=== PATIENT | male | born 1950 ===

== ENCOUNTER 2018-07-17 10:49 | Inpatient (IN) ==
[2018-07-17] MEDS ORDERED: GLUCAGON 1 MG VIAL IM PRN (14:12)
[2018-07-17] MEDS ORDERED: DEXTROSE 50% 25 GM/50 ML VIAL IV PRN (14:12)
[2018-07-17] MEDS ORDERED: MORPHINE 4 MG/1 ML VIAL IV PRN (14:12)
[2018-07-17] MEDS ORDERED: ONDANSETRON 4 MG/2 ML VIAL IV PRN (14:12)
[2018-07-17] MEDS: SODIUM CHLORIDE 0.9% 1,000 ML IV SCH ×2 (15:15→23:28)
[2018-07-17] MEDS: PIPERACILLIN/TAZOBACTAM 3,375 MG in SODIUM CHLORIDE 0.9% 100 ML IV SCH ×2 (15:15→23:30)
[2018-07-17] MEDS: INSULIN LISPRO 100 UNIT/ML SUBCUT SCH ×2 (17:17→20:37)
[2018-07-17] MEDS: VANCOMYCIN INJ 1,250 MG in SODIUM CHLORIDE 0.9% 250 ML IV SCH (20:30)
[2018-07-17] MEDS: ENOXAPARIN 40 MG/0.4 ML SYRINGE SUBCUT SCH (20:31)
[2018-07-17] MEDS: THIAMINE 100 MG TABLET PO SCH (20:37)
[2018-07-18 02:20] LABS: Apearance,Urine CLEAR (Clear); Bilirubin,Urine Negative (Negative); Blood, Urine Small mg/dL (Negative); Glucose,Urine (UA) Negative (Negative); Ketones,Urine Negative (Negative); Mucus,Urine Occasional /LPF (Occasional); Nitrite,Urine Negative (Negative); Protein,Urine Negative; RBC,Urine <1 /HPF (0-4); Urine Color Yellow (Yellow); WBC,Urine <1 /HPF (0-6)
[2018-07-18 04:21] LABS: Basophils # 0.1 10*3/uL (0.0-0.2); Basophils % 0.6 % (0.0-0.8); Eosinophils # 0.2 10*3/uL (0.0-0.87); Eosinophils % 2.3 % (0.00-10.9); Hematocrit 36.5 VOL% (42.0-52.0); Hemoglobin 12.5 GM/DL (14.0-18.0); Immature Granulocytes % 0.6 %; Immature Granulocytes Absolute 0.05 #; Lymphocytes # 1.4 10*3/uL (1.4-4.0); Lymphocytes % 15.9 % (21.2-54.2); Mean Corpuscular HGB Conc 34.2 GM/DL (32-36); Mean Corpuscular Hemoglobin 31 PG (27-34); Mean Corpuscular Volume 89.9 FL (87-102); Mean Platelet Volume 8.9 FL (9.6-12.0); Monocytes # 0.8 10*3/uL (0.11-0.8); Monocytes % 9.3 % (1.7-12.7); Neutrophils # 6.4 10*3/uL (1.4-7.4); Neutrophils % 71.3 % (38.7-73.9); Platelet Count 248 T/CUMM (130-400); Red Blood Count 4.06 MC/CUMM (3.8-5.5); Red Cell Distribution Width 12.8 % (9.3-17.3)
[2018-07-18 04:47] LABS: Albumin 2.6 G/DL (3.4-5.0); Bilirubin,Total 0.8 MG/DL (0.2-1.0); Calcium 8.3 MG/DL (8.5-10.1); Osmolality,Calculated 277.5 MOS/KG (273-304); Potassium 3.8 MMOL/L (3.5-5.1); Total Protein 6.4 G/DL (6.4-8.3)
[2018-07-18] MEDS: INSULIN LISPRO 100 UNIT/ML SUBCUT SCH ×4 (07:46→20:31)
[2018-07-18] MEDS: PIPERACILLIN/TAZOBACTAM 3,375 MG in SODIUM CHLORIDE 0.9% 100 ML IV SCH ×3 (07:52→22:52)
[2018-07-18] MEDS: PANTOPRAZOLE 40 MG TABLET PO SCH (08:26)
[2018-07-18] MEDS: MULTIVITAMIN (BEROCCA) TABLET PO SCH (08:26)
[2018-07-18] MEDS: THIAMINE 100 MG TABLET PO SCH ×2 (08:26→20:30)
[2018-07-18] MEDS: VANCOMYCIN INJ 1,250 MG in SODIUM CHLORIDE 0.9% 250 ML IV SCH ×2 (09:29→20:34)
[2018-07-18] MEDS ORDERED: POLYVINYL ALCOHOL 1.4% OPH SOLN 15 ML BOTTLE BOTH EYES PRN (11:57)
[2018-07-18] MEDS ORDERED: LIDOCAINE 1% 20 ML VIAL ONE (12:02)
[2018-07-18] MEDS ORDERED: DEXTROSE 50% 25 GM/50 ML VIAL IV PRN (12:03)
[2018-07-18] MEDS ORDERED: GLUCAGON 1 MG VIAL IM PRN (12:03)
[2018-07-18] MEDS ORDERED: fentaNYL 100 MCG/2 ML VIAL ONE (13:23)
[2018-07-18] MEDS ORDERED: PROPOFOL 200 MG/20 ML VIAL IV ONE (13:27)
[2018-07-18] MEDS ORDERED: MIDAZOLAM 2 MG/2 ML VIAL ONE (13:28)
[2018-07-18] MEDS ORDERED: SODIUM CHLORIDE 0.9% 250 ML IV ONE (13:28)
[2018-07-18] MEDS: SODIUM CHLORIDE 0.9% 1,000 ML IV SCH (15:21)
[2018-07-18] MEDS: ACETAMINOPHEN 325 MG TABLET PO PRN ×2 (16:30→21:25)
[2018-07-18] MEDS ORDERED: INSULIN LISPRO 100 UNIT/ML SUBCUT SCH (16:30)
[2018-07-18] MEDS: ENOXAPARIN 40 MG/0.4 ML SYRINGE SUBCUT SCH (20:30)
[2018-07-18] MEDS: SIMVASTATIN 40 MG TABLET PO SCH (20:30)
[2018-07-18] MEDS: DOCUSATE SODIUM 100 MG CAPSULE PO SCH (20:30)
[2018-07-18] MEDS: diphenhydrAMINE CAP 25 MG CAPSULE PO PRN (21:26)
[2018-07-19] MEDS: ACETAMINOPHEN 325 MG TABLET PO PRN ×4 (03:01→21:04)
[2018-07-19] MEDS: SODIUM CHLORIDE 0.9% 1,000 ML IV SCH ×2 (03:10→21:12)
[2018-07-19 06:01] LABS: Basophils % 0.3 % (0.0-0.8); Eosinophils # 0.2 10*3/uL (0.0-0.87); Eosinophils % 2.2 % (0.00-10.9); Hematocrit 34.7 VOL% (42.0-52.0); Hemoglobin 12.2 GM/DL (14.0-18.0); Immature Granulocytes % 0.4 %; Immature Granulocytes Absolute 0.03 #; Lymphocytes % 14.1 % (21.2-54.2); Mean Corpuscular HGB Conc 35.2 GM/DL (32-36); Mean Corpuscular Hemoglobin 31 PG (27-34); Mean Platelet Volume 8.9 FL (9.6-12.0); Monocytes # 0.7 10*3/uL (0.11-0.8); Monocytes % 8.8 % (1.7-12.7); Neutrophils # 5.5 10*3/uL (1.4-7.4); Neutrophils % 74.2 % (38.7-73.9); Platelet Count 252 T/CUMM (130-400); Red Blood Count 3.99 MC/CUMM (3.8-5.5); Red Cell Distribution Width 12.7 % (9.3-17.3); White Blood Count 7.4 T/CUMM (4-12)
[2018-07-19 06:30] LABS: Osmolality,Calculated 279.4 MOS/KG (273-304); Potassium 3.5 MMOL/L (3.5-5.1)
[2018-07-19] MEDS: PIPERACILLIN/TAZOBACTAM 3,375 MG in SODIUM CHLORIDE 0.9% 100 ML IV SCH ×3 (06:38→23:20)
[2018-07-19] MEDS: THIAMINE 100 MG TABLET PO SCH ×2 (08:40→21:04)
[2018-07-19] MEDS: METOPROLOL SUCCINATE XL 25 MG TABLET PO SCH (08:42)
[2018-07-19] MEDS: ASPIRIN EC 325 MG TABLET PO SCH (08:43)
[2018-07-19] MEDS: INSULIN LISPRO 100 UNIT/ML SUBCUT SCH ×4 (08:43→21:06)
[2018-07-19] MEDS: MULTIVITAMIN (BEROCCA) TABLET PO SCH (08:43)
[2018-07-19] MEDS: PANTOPRAZOLE 40 MG TABLET PO SCH (08:43)
[2018-07-19] MEDS: VANCOMYCIN INJ 1,250 MG in SODIUM CHLORIDE 0.9% 250 ML IV SCH (10:03)
[2018-07-19] MEDS ORDERED: VANCOMYCIN INJ 1,250 MG in SODIUM CHLORIDE 0.9% 250 ML IV SCH (18:00)
[2018-07-19] MEDS: SIMVASTATIN 40 MG TABLET PO SCH (21:04)
[2018-07-19] MEDS: diphenhydrAMINE CAP 25 MG CAPSULE PO PRN (21:04)
[2018-07-19] MEDS: DOCUSATE SODIUM 100 MG CAPSULE PO SCH (21:04)
[2018-07-19] MEDS: ENOXAPARIN 40 MG/0.4 ML SYRINGE SUBCUT SCH (21:05)
[2018-07-20] MEDS: SODIUM CHLORIDE 0.9% 1,000 ML IV SCH ×3 (05:16→23:43)
[2018-07-20] MEDS: PIPERACILLIN/TAZOBACTAM 3,375 MG in SODIUM CHLORIDE 0.9% 100 ML IV SCH ×3 (06:13→22:53)
[2018-07-20] MEDS: THIAMINE 100 MG TABLET PO SCH ×2 (08:24→20:45)
[2018-07-20] MEDS: PANTOPRAZOLE 40 MG TABLET PO SCH (08:24)
[2018-07-20] MEDS: METOPROLOL SUCCINATE XL 25 MG TABLET PO SCH (08:24)
[2018-07-20] MEDS: MULTIVITAMIN (BEROCCA) TABLET PO SCH (08:24)
[2018-07-20] MEDS: ASPIRIN EC 325 MG TABLET PO SCH (08:24)
[2018-07-20] MEDS: INSULIN LISPRO 100 UNIT/ML SUBCUT SCH ×4 (08:25→20:45)
[2018-07-20] MEDS: ACETAMINOPHEN 325 MG TABLET PO PRN ×2 (08:30→18:30)
[2018-07-20] MEDS: DOCUSATE SODIUM 100 MG CAPSULE PO SCH (20:45)
[2018-07-20] MEDS: SIMVASTATIN 40 MG TABLET PO SCH (20:45)
[2018-07-20] MEDS: ENOXAPARIN 40 MG/0.4 ML SYRINGE SUBCUT SCH (20:46)
[2018-07-21] MEDS: SODIUM CHLORIDE 0.9% 1,000 ML IV SCH ×3 (05:13→15:13)
[2018-07-21] MEDS: ACETAMINOPHEN 325 MG TABLET PO PRN ×2 (06:06→11:58)
[2018-07-21] MEDS: PIPERACILLIN/TAZOBACTAM 3,375 MG in SODIUM CHLORIDE 0.9% 100 ML IV SCH (06:06)
[2018-07-21] MEDS: INSULIN LISPRO 100 UNIT/ML SUBCUT SCH ×2 (07:38→11:50)
[2018-07-21] MEDS: THIAMINE 100 MG TABLET PO SCH (08:12)
[2018-07-21] MEDS: ASPIRIN EC 325 MG TABLET PO SCH (08:12)
[2018-07-21] MEDS: MULTIVITAMIN (BEROCCA) TABLET PO SCH (08:12)
[2018-07-21] MEDS: METOPROLOL SUCCINATE XL 25 MG TABLET PO SCH (08:12)
[2018-07-21] MEDS: PANTOPRAZOLE 40 MG TABLET PO SCH (08:12)
[2018-07-21 11:59] VITALS: BP 132/72
== END 2018-07-21 16:20 | disposition home or self-care (01) | DRG 305 ==
LOC: SUATTDRO 12:39 → N.3E 12:39
PROVIDERS: ADMIT Internal Medicine; ATTEND Internal Medicine

== ENCOUNTER 2019-03-12 18:42 | Inpatient (IN) ==
[2019-03-12] MEDS ORDERED: PIPERACILLIN/TAZOBACTAM 3,375 MG in SODIUM CHLORIDE 0.9% 100 ML IV STA (19:08)
[2019-03-12 19:45] LABS: Basophils # 0.1 10*3/uL (0.0-0.2); Basophils % 0.3 % (0.0-0.8); Eosinophils # 0.1 10*3/uL (0.0-0.87); Eosinophils % 0.4 % (0.00-10.9); Hematocrit 32.8 VOL% (42.0-52.0); Hemoglobin 10.7 GM/DL (14.0-18.0); Immature Granulocytes % 0.5 %; Immature Granulocytes Absolute 0.07 #; Lymphocytes # 1.2 10*3/uL (1.4-4.0); Mean Corpuscular HGB Conc 32.6 GM/DL (32-36); Mean Corpuscular Hemoglobin 29 PG (27-34); Mean Corpuscular Volume 88.2 FL (87-102); Mean Platelet Volume 8.6 FL (9.6-12.0); Monocytes % 6.9 % (1.7-12.7); Neutrophils # 12.2 10*3/uL (1.4-7.4); Neutrophils % 83.9 % (38.7-73.9); Platelet Count 407 T/CUMM (130-400); Red Blood Count 3.72 MC/CUMM (3.8-5.5); Red Cell Distribution Width 12.1 % (9.3-17.3); White Blood Count 14.6 T/CUMM (4-12)
[2019-03-12 20:07] LABS: Albumin 2.6 G/DL (3.4-5.0); Bilirubin,Total 0.6 MG/DL (0.2-1.0); Calcium 7.5 MG/DL (8.5-10.1); Osmolality,Calculated 277.1 MOS/KG (273-304); Potassium 5.1 MMOL/L (3.5-5.1); Total Protein 6.6 G/DL (6.4-8.3)
[2019-03-12] MEDS: LACTATED RINGERS 1,000 ML IV SCH (20:43)
[2019-03-12] MEDS ORDERED: MORPHINE 4 MG/1 ML VIAL IV PRN (21:25)
[2019-03-12] MEDS ORDERED: traZODone 50 MG TABLET PO PRN (21:25)
[2019-03-12] MEDS ORDERED: DOCUSATE SODIUM 100 MG CAPSULE PO PRN (21:25)
[2019-03-12] MEDS ORDERED: ACETAMINOPHEN 325 MG TABLET PO PRN (21:25)
[2019-03-12] MEDS ORDERED: ONDANSETRON 4 MG/2 ML VIAL IV PRN (21:25)
[2019-03-12] MEDS ORDERED: DEXTROSE 50% 25 GM/50 ML SYRINGE IV PRN (21:30)
[2019-03-12] MEDS ORDERED: GLUCAGON 1 MG VIAL IM PRN (21:30)
[2019-03-12] MEDS ORDERED: VANCOMYCIN INJ 1,000 MG in SODIUM CHLORIDE 0.9% 250 ML IV SCH (23:30)
[2019-03-13] MEDS: SODIUM CHLORIDE 0.9% 1,000 ML IV SCH (00:34)
[2019-03-13] MEDS: VANCOMYCIN INJ 1,000 MG in SODIUM CHLORIDE 0.9% 250 ML IV SCH ×3 (00:35→23:12)
[2019-03-13] MEDS: LACTATED RINGERS 1,000 ML IV SCH ×3 (01:54→20:30)
[2019-03-13] MEDS: PIPERACILLIN/TAZOBACTAM 3,375 MG in SODIUM CHLORIDE 0.9% 100 ML IV SCH ×3 (03:05→18:55)
[2019-03-13 04:24] LABS: Basophils % 0.2 % (0.0-0.8); Eosinophils # 0.1 10*3/uL (0.0-0.87); Eosinophils % 0.5 % (0.00-10.9); Hematocrit 31.4 VOL% (42.0-52.0); Hemoglobin 10.1 GM/DL (14.0-18.0); Immature Granulocytes % 0.5 %; Immature Granulocytes Absolute 0.06 #; Lymphocytes # 1.2 10*3/uL (1.4-4.0); Lymphocytes % 11.1 % (21.2-54.2); Mean Corpuscular HGB Conc 32.2 GM/DL (32-36); Mean Corpuscular Hemoglobin 29 PG (27-34); Mean Corpuscular Volume 88.5 FL (87-102); Mean Platelet Volume 8.7 FL (9.6-12.0); Monocytes % 8.8 % (1.7-12.7); Neutrophils # 8.6 10*3/uL (1.4-7.4); Neutrophils % 78.9 % (38.7-73.9); Platelet Count 355 T/CUMM (130-400); Red Blood Count 3.55 MC/CUMM (3.8-5.5); White Blood Count 10.9 T/CUMM (4-12)
[2019-03-13 04:43] LABS: Calcium 7.7 MG/DL (8.5-10.1); Osmolality,Calculated 275.1 MOS/KG (273-304)
[2019-03-13] MEDS ORDERED: CLINDAMYCIN INJ 900 MG in PREMIX 1 EACH IV ONE (08:17)
[2019-03-13] MEDS: INSULIN LISPRO 100 UNIT/ML SUBCUT SCH ×4 (08:36→20:31)
[2019-03-13] MEDS ORDERED: LIDOCAINE 1% 20 ML VIAL ONE (11:42)
[2019-03-13] MEDS ORDERED: PROPOFOL 200 MG/20 ML VIAL IV ONE (13:09)
[2019-03-13] MEDS ORDERED: MIDAZOLAM 2 MG/2 ML VIAL ONE (13:09)
[2019-03-13] MEDS ORDERED: fentaNYL 100 MCG/2 ML VIAL ONE (13:09)
[2019-03-13] MEDS ORDERED: PHENYLEPHRINE 1 MG/10 ML SYRINGE IV ONE (13:10)
[2019-03-14] MEDS: LACTATED RINGERS 1,000 ML IV SCH ×2 (02:41→06:54)
[2019-03-14] MEDS: PIPERACILLIN/TAZOBACTAM 3,375 MG in SODIUM CHLORIDE 0.9% 100 ML IV SCH ×2 (02:42→11:14)
[2019-03-14 04:21] LABS: Basophils % 0.4 % (0.0-0.8); Eosinophils # 0.2 10*3/uL (0.0-0.87); Eosinophils % 1.7 % (0.00-10.9); Hematocrit 31.8 VOL% (42.0-52.0); Hemoglobin 10.3 GM/DL (14.0-18.0); Immature Granulocytes % 0.5 %; Immature Granulocytes Absolute 0.05 #; Lymphocytes # 1.1 10*3/uL (1.4-4.0); Lymphocytes % 11.3 % (21.2-54.2); Mean Corpuscular HGB Conc 32.4 GM/DL (32-36); Mean Corpuscular Hemoglobin 29 PG (27-34); Mean Corpuscular Volume 89.1 FL (87-102); Mean Platelet Volume 8.6 FL (9.6-12.0); Monocytes # 0.9 10*3/uL (0.11-0.8); Monocytes % 8.6 % (1.7-12.7); Neutrophils # 7.7 10*3/uL (1.4-7.4); Neutrophils % 77.5 % (38.7-73.9); Platelet Count 332 T/CUMM (130-400); Red Blood Count 3.57 MC/CUMM (3.8-5.5); White Blood Count 9.9 T/CUMM (4-12)
[2019-03-14 04:51] LABS: Calcium 7.7 MG/DL (8.5-10.1); Osmolality,Calculated 275.8 MOS/KG (273-304); Potassium 3.8 MMOL/L (3.5-5.1)
[2019-03-14] MEDS: INSULIN LISPRO 100 UNIT/ML SUBCUT SCH ×2 (07:02→11:14)
[2019-03-14] MEDS ORDERED: CHLORHEXIDINE 4% SOLN 118 ML BOTTLE TOP SCH (09:00)
[2019-03-14] MEDS ORDERED: SODIUM HYPOCHLORITE 0.25% IRRIG 473 ML BOTTLE TOP SCH (09:00)
[2019-03-14] MEDS: SODIUM CHLORIDE 0.9% 1,000 ML IV SCH ×2 (09:23→09:24)
[2019-03-14] MEDS: VANCOMYCIN INJ 1,000 MG in SODIUM CHLORIDE 0.9% 250 ML IV SCH (11:15)
[2019-03-14 11:26] VITALS: BP 133/84
== END 2019-03-14 11:15 | disposition home or self-care (01) | DRG 314 ==
LOC: EDUNIT# → EDBD → N.ED 18:42 → SUATTDRO 20:51 → N.EDINP 20:51 → N.3E 22:30
PROVIDERS: ADMIT Internal Medicine Infectious Disease; ATTEND Internal Medicine

== ENCOUNTER 2019-09-21 13:25 | Inpatient (IN) ==
[2019-09-21] MEDS ORDERED: SODIUM CHLORIDE 0.9% 1,000 ML IV STA (13:57)
[2019-09-21] MEDS ORDERED: MEROPENEM 1,000 MG in SODIUM CHLORIDE 0.9% 100 ML IV STA (13:57)
[2019-09-21] MEDS ORDERED: MEROPENEM 500 MG VIAL ONE (14:12)
[2019-09-21 14:21] LABS: Basophils % 0.1 % (0.0-0.8); Hematocrit 37.6 VOL% (42.0-52.0); Hemoglobin 12.8 GM/DL (14.0-18.0); Immature Granulocytes % 0.9 %; Lymphocytes # 0.7 10*3/uL (1.4-4.0); Lymphocytes % 3.1 % (21.2-54.2); Mean Corpuscular Volume 89.3 FL (87-102); Mean Platelet Volume 9.3 FL (9.6-12.0); Monocytes % 4.4 % (1.7-12.7); Neutrophils % 91.5 % (38.7-73.9); Platelet Count 254 T/CUMM (130-400); Red Blood Count 4.21 MC/CUMM (3.8-5.5); Red Cell Distribution Width 12.7 % (9.3-17.3); White Blood Count 21.1 T/CUMM (4-12)
[2019-09-21 14:26] LABS: Apearance,Urine CLEAR (Clear); Bilirubin,Urine Negative (Negative); Blood, Urine Moderate mg/dL (Negative); Glucose,Urine (UA) >=500 mg/dL (Negative); Hyaline Casts,Urine 3 /LPF (0-3); Ketones,Urine 20 mg/dL (Negative); Nitrite,Urine Negative (Negative); Protein,Urine 100 MG/DL; RBC,Urine 9 /HPF (0-4); Urine Color Yellow (Yellow); Urine Specific Gravity 1.026 (1.001-1.035); WBC,Urine 1 /HPF (0-6)
[2019-09-21] MEDS ORDERED: BUPIVACAINE 0.25% /EPI 10 ML VIAL ONE (14:33)
[2019-09-21] MEDS ORDERED: LIDOCAINE 1%/EPI INJ 20 ML VIAL ONE (14:33)
[2019-09-21 14:41] LABS: Blood Urea Nitrogen 32 MG/DL (7-18); Calcium 8.4 MG/DL (8.5-10.1); Estimated Glom Filtration Rate 62 ML/MIN; Glucose 382 MG/DL (74-106); Osmolality,Calculated 295.8 MOS/KG (273-304)
[2019-09-21 15:30] LABS: Band Neutrophils 2 % (0-10); Lymphocytes 3 % (20-55); Platelet Estimate Normal; Segmented Neutrophils 93 % (50-85); Total Cells Counted 100
[2019-09-21] MEDS ORDERED: PROPOFOL 200 MG/20 ML VIAL IV ONE (16:11)
[2019-09-21] MEDS ORDERED: fentaNYL 100 MCG/2 ML VIAL ONE (16:12)
[2019-09-21] MEDS ORDERED: DESFLURANE 1 UNIT/15 MINUTE INH ONE (16:12)
[2019-09-21] MEDS ORDERED: SUCCINYLCHOLINE 200 MG/10 ML VIAL ONE (16:12)
[2019-09-21] MEDS ORDERED: ETOMIDATE 40 MG/20 ML VIAL IV ONE (16:12)
[2019-09-21] MEDS ORDERED: SODIUM CHLORIDE 0.9% 1,000 ML IV ONE (16:12)
[2019-09-21] MEDS ORDERED: LIDOCAINE 2% 5 ML VIAL ONE (16:12)
[2019-09-21] MEDS ORDERED: ONDANSETRON 4 MG/2 ML VIAL ONE (16:15)
[2019-09-21] MEDS ORDERED: HYDROmorphone 2 MG/1 ML VIAL ONE (16:15)
[2019-09-21] MEDS ORDERED: HYDROmorphone 2 MG/1 ML VIAL IV PRN (16:16)
[2019-09-21] MEDS ORDERED: ONDANSETRON 4 MG/2 ML VIAL IV PRN ×2 (16:16→17:15)
[2019-09-21 16:22] LABS: Apearance,Urine CLEAR (Clear); Bilirubin,Urine Negative (Negative); Blood, Urine Moderate mg/dL (Negative); Glucose,Urine (UA) >=500 mg/dL (Negative); Hyaline Casts,Urine 5 /LPF (0-3); Ketones,Urine 5 mg/dL (Negative); Mucus,Urine Occasional /LPF (Occasional); Nitrite,Urine Negative (Negative); Protein,Urine 100 MG/DL; RBC,Urine 4 /HPF (0-4); Urine Color Yellow (Yellow); Urine Specific Gravity 1.026 (1.001-1.035); WBC,Urine 1 /HPF (0-6)
[2019-09-21] MEDS ORDERED: INFLUENZA VIRUS VACCINE 0.5 ML SYRINGE IM ONE (17:09)
[2019-09-21] MEDS ORDERED: PNEUMOCOCCAL VACCINE (13 VALENT) 0.5 ML SYRINGE IM ONE (17:09)
[2019-09-21] MEDS ORDERED: ACETAMINOPHEN 325 MG TABLET PO PRN (17:15)
[2019-09-21] MEDS ORDERED: DEXTROSE 50% 25 GM/50 ML VIAL IV PRN ×2 (17:15→17:27)
[2019-09-21] MEDS ORDERED: GLUCAGON 1 MG VIAL IM PRN (17:27)
[2019-09-21] MEDS ORDERED: INSULIN REGULAR 100 UNIT/ML ONE (17:41)
[2019-09-21] MEDS: SODIUM CHLORIDE 0.9% 1,000 ML IV SCH (17:45)
[2019-09-21] MEDS: INSULIN REGULAR 100 UNIT/ML SUBCUT SCH ×2 (18:10→20:19)
[2019-09-21] MEDS: VANCOMYCIN INJ 1,250 MG in SODIUM CHLORIDE 0.9% 250 ML IV SCH (19:01)
[2019-09-21] MEDS: MEROPENEM 500 MG in SODIUM CHLORIDE 0.9% 100 ML IV SCH (20:19)
[2019-09-21] MEDS: traZODone 50 MG TABLET PO PRN (20:20)
[2019-09-22] MEDS: MEROPENEM 500 MG in SODIUM CHLORIDE 0.9% 100 ML IV SCH ×4 (02:54→21:58)
[2019-09-22] MEDS: SODIUM CHLORIDE 0.9% 1,000 ML IV SCH (02:54)
[2019-09-22] MEDS ORDERED: SODIUM CHLORIDE 0.9% 500 ML IV ONE (03:01)
[2019-09-22 04:36] LABS: Basophils % 0.2 % (0.0-0.8); Eosinophils % 0.2 % (0.00-10.9); Hematocrit 29.2 VOL% (42.0-52.0); Immature Granulocytes % 0.8 %; Lymphocytes # 0.9 10*3/uL (1.4-4.0); Lymphocytes % 7.2 % (21.2-54.2); Mean Corpuscular HGB Conc 33.9 GM/DL (32-36); Mean Platelet Volume 9.3 FL (9.6-12.0); Monocytes % 4.8 % (1.7-12.7); Neutrophils % 86.8 % (38.7-73.9); Red Blood Count 3.21 MC/CUMM (3.8-5.5); Red Cell Distribution Width 12.7 % (9.3-17.3); White Blood Count 12.8 T/CUMM (4-12)
[2019-09-22 04:38] LABS: Hemoglobin 9.9 GM/DL (14.0-18.0); Platelet Count 196 T/CUMM (130-400)
[2019-09-22 04:50] LABS: Calcium 7.4 MG/DL (8.5-10.1); Osmolality,Calculated 286.3 MOS/KG (273-304)
[2019-09-22] MEDS: VANCOMYCIN INJ 1,250 MG in SODIUM CHLORIDE 0.9% 250 ML IV SCH ×2 (05:59→18:43)
[2019-09-22] MEDS ORDERED: MAGNESIUM SULF RIDER 2 GM in PREMIX 1 EACH IV ONE (07:27)
[2019-09-22] MEDS: POTASSIUM CHLORIDE INJ 20 MEQ in LACTATED RINGERS 1,000 ML IV SCH ×2 (09:04→17:34)
[2019-09-22] MEDS: INSULIN REGULAR 100 UNIT/ML SUBCUT SCH ×4 (09:05→21:58)
[2019-09-22] MEDS: SODIUM HYPOCHLORITE 0.25% IRRIG 473 ML BOTTLE TOP SCH ×2 (11:05→22:00)
[2019-09-22] MEDS ORDERED: POLYVINYL ALCOHOL 1.4% OPH SOLN 15 ML BOTTLE BOTH EYES PRN (11:07)
[2019-09-22] MEDS ORDERED: diphenhydrAMINE CAP 25 MG CAPSULE PO PRN (11:07)
[2019-09-22] MEDS: MORPHINE 4 MG/1 ML VIAL IV PRN (12:00)
[2019-09-23] MEDS: MEROPENEM 500 MG in SODIUM CHLORIDE 0.9% 100 ML IV SCH ×4 (04:25→21:46)
[2019-09-23] MEDS: POTASSIUM CHLORIDE INJ 20 MEQ in LACTATED RINGERS 1,000 ML IV SCH ×4 (04:33→19:46)
[2019-09-23 05:51] LABS: Basophils % 0.1 % (0.0-0.8); Eosinophils # 0.1 10*3/uL (0.0-0.87); Eosinophils % 0.9 % (0.00-10.9); Hematocrit 29.4 VOL% (42.0-52.0); Hemoglobin 9.9 GM/DL (14.0-18.0); Immature Granulocytes % 0.5 %; Immature Granulocytes Absolute 0.05 #; Lymphocytes % 10.7 % (21.2-54.2); Mean Corpuscular HGB Conc 33.7 GM/DL (32-36); Mean Corpuscular Volume 89.4 FL (87-102); Mean Platelet Volume 9.8 FL (9.6-12.0); Neutrophils % 81.8 % (38.7-73.9); Platelet Count 216 T/CUMM (130-400); Red Blood Count 3.29 MC/CUMM (3.8-5.5); Red Cell Distribution Width 12.9 % (9.3-17.3); White Blood Count 9.3 T/CUMM (4-12)
[2019-09-23 06:20] LABS: Albumin 1.9 G/DL (3.4-5.0); Bilirubin,Total 0.9 MG/DL (0.2-1.0); Calcium 7.7 MG/DL (8.5-10.1); Osmolality,Calculated 282.5 MOS/KG (273-304); Total Protein 5.4 G/DL (6.4-8.3)
[2019-09-23] MEDS: VANCOMYCIN INJ 1,250 MG in SODIUM CHLORIDE 0.9% 250 ML IV SCH ×2 (07:22→22:18)
[2019-09-23] MEDS: ENOXAPARIN 40 MG/0.4 ML SYRINGE SUBCUT SCH (08:18)
[2019-09-23] MEDS: ASPIRIN EC 81 MG TABLET PO SCH (08:18)
[2019-09-23] MEDS: INSULIN REGULAR 100 UNIT/ML SUBCUT SCH ×4 (08:18→21:47)
[2019-09-23] MEDS: SODIUM HYPOCHLORITE 0.25% IRRIG 473 ML BOTTLE TOP SCH ×2 (10:25→21:56)
[2019-09-23] MEDS: MORPHINE 4 MG/1 ML VIAL IV PRN (22:28)
[2019-09-24] MEDS: MEROPENEM 500 MG in SODIUM CHLORIDE 0.9% 100 ML IV SCH ×4 (02:21→20:47)
[2019-09-24] MEDS: POTASSIUM CHLORIDE INJ 20 MEQ in LACTATED RINGERS 1,000 ML IV SCH ×3 (02:22→14:29)
[2019-09-24] MEDS: VANCOMYCIN INJ 1,250 MG in SODIUM CHLORIDE 0.9% 250 ML IV SCH ×3 (05:34→22:21)
[2019-09-24] MEDS: INSULIN REGULAR 100 UNIT/ML SUBCUT SCH ×4 (08:37→20:47)
[2019-09-24] MEDS: ASPIRIN EC 81 MG TABLET PO SCH (08:37)
[2019-09-24] MEDS: ENOXAPARIN 40 MG/0.4 ML SYRINGE SUBCUT SCH (08:38)
[2019-09-24] MEDS: SODIUM HYPOCHLORITE 0.25% IRRIG 473 ML BOTTLE TOP SCH ×2 (10:11→20:50)
[2019-09-24] MEDS: traZODone 50 MG TABLET PO PRN (20:53)
[2019-09-25] MEDS: MEROPENEM 500 MG in SODIUM CHLORIDE 0.9% 100 ML IV SCH ×3 (01:41→13:30)
[2019-09-25] MEDS: POTASSIUM CHLORIDE INJ 20 MEQ in LACTATED RINGERS 1,000 ML IV SCH ×3 (01:41→10:22)
[2019-09-25 05:15] LABS: Calcium 8.5 MG/DL (8.5-10.1); Osmolality,Calculated 284.5 MOS/KG (273-304)
[2019-09-25] MEDS: VANCOMYCIN INJ 1,250 MG in SODIUM CHLORIDE 0.9% 250 ML IV SCH ×2 (05:31→15:02)
[2019-09-25] MEDS: INSULIN REGULAR 100 UNIT/ML SUBCUT SCH ×4 (08:40→21:04)
[2019-09-25] MEDS: ASPIRIN EC 81 MG TABLET PO SCH (08:44)
[2019-09-25] MEDS: ENOXAPARIN 40 MG/0.4 ML SYRINGE SUBCUT SCH (08:45)
[2019-09-25] MEDS: SODIUM HYPOCHLORITE 0.25% IRRIG 473 ML BOTTLE TOP SCH ×2 (10:22→21:05)
[2019-09-25] MEDS ORDERED: INSULIN GLARGINE 100 UNIT/ML SUBCUT SCH (21:00)
[2019-09-26 06:18] LABS: Basophils % 0.4 % (0.0-0.8); Eosinophils % 3.4 % (0.00-10.9); Hematocrit 30.8 VOL% (42.0-52.0); Hemoglobin 10.1 GM/DL (14.0-18.0); Immature Granulocytes % 2.7 %; Lymphocytes # 1.3 10*3/uL (1.4-4.0); Lymphocytes % 18.2 % (21.2-54.2); Mean Corpuscular HGB Conc 32.8 GM/DL (32-36); Mean Corpuscular Volume 90.1 FL (87-102); Mean Platelet Volume 9.7 FL (9.6-12.0); Neutrophils % 62.3 % (38.7-73.9); Platelet Count 287 T/CUMM (130-400); Red Blood Count 3.42 MC/CUMM (3.8-5.5); Red Cell Distribution Width 12.7 % (9.3-17.3); White Blood Count 7.3 T/CUMM (4-12)
[2019-09-26 06:19] LABS: Eosinophils # 0.3 10*3/uL (0.0-0.87)
[2019-09-26] MEDS ORDERED: METOPROLOL SUCCINATE XL 25 MG TABLET PO SCH (09:00)
[2019-09-26] MEDS ORDERED: SULFAMETHOX/TRIMETHOPRIM 800-160 MG TABLET PO SCH (09:00)
[2019-09-26] MEDS: INSULIN REGULAR 100 UNIT/ML SUBCUT SCH ×2 (09:42→12:16)
[2019-09-26] MEDS: ASPIRIN EC 81 MG TABLET PO SCH (09:43)
[2019-09-26] MEDS: ENOXAPARIN 40 MG/0.4 ML SYRINGE SUBCUT SCH (09:43)
[2019-09-26] MEDS: SODIUM HYPOCHLORITE 0.25% IRRIG 473 ML BOTTLE TOP SCH (09:44)
[2019-09-26 14:42] VITALS: BP 108/60
== END 2019-09-26 16:10 | disposition home or self-care (01) | DRG 501 ==
LOC: EDBD → EDUNIT# → N.ED 13:25 → N.ICU 14:23 → SUATTDRO 16:09 → N.EDINP 16:09 → N.ICU 16:29 → N.5E 09-22 16:41
PROVIDERS: ADMIT Anesthesiology; ATTEND Family Medicine

== ENCOUNTER 2019-09-30 12:07 | Inpatient (IN) ==
[2019-09-30] MEDS ORDERED: MEROPENEM 1,000 MG in SODIUM CHLORIDE 0.9% 100 ML IV STA (12:54)
[2019-09-30] MEDS ORDERED: MEROPENEM 500 MG VIAL ONE (13:21)
[2019-09-30 13:29] LABS: Basophils % 0.4 % (0.0-0.8); Eosinophils # 0.2 10*3/uL (0.0-0.87); Eosinophils % 1.9 % (0.00-10.9); Hematocrit 35.8 VOL% (42.0-52.0); Hemoglobin 11.8 GM/DL (14.0-18.0); Immature Granulocytes % 0.6 %; Immature Granulocytes Absolute 0.06 #; Lymphocytes # 1.5 10*3/uL (1.4-4.0); Lymphocytes % 15.8 % (21.2-54.2); Mean Corpuscular Volume 90.6 FL (87-102); Mean Platelet Volume 8.5 FL (9.6-12.0); Monocytes % 3.8 % (1.7-12.7); Neutrophils % 77.5 % (38.7-73.9); Platelet Count 477 T/CUMM (130-400); Red Blood Count 3.95 MC/CUMM (3.8-5.5); Red Cell Distribution Width 12.7 % (9.3-17.3); White Blood Count 9.4 T/CUMM (4-12)
[2019-09-30 13:37] LABS: Apearance,Urine CLEAR (Clear); Bilirubin,Urine Negative (Negative); Blood, Urine Negative (Negative); Glucose,Urine (UA) Negative (Negative); Hyaline Casts,Urine 21 /LPF (0-3); Ketones,Urine 5 mg/dL (Negative); Mucus,Urine Occasional /LPF (Occasional); Nitrite,Urine Negative (Negative); Protein,Urine 100 MG/DL; RBC,Urine 10 /HPF (0-4); Squamous Epithelial Cell,Urine Occasional /HPF (0-10); Urine Color Yellow (Yellow); Urine Specific Gravity 1.028 (1.001-1.035); WBC,Urine 1 /HPF (0-6)
[2019-09-30 13:37] LABS: PT Patient Result 10.8 SECS (9.6-12.2)
[2019-09-30 13:50] LABS: Alanine Aminotransferase 25 U/L (16-61); Albumin 2.8 G/DL (3.4-5.0); Alkaline Phosphatase 174 U/L (45-117); Aspartate Amino Transferase 12 U/L (0-37); Blood Urea Nitrogen 16 MG/DL (7-18); Calcium 8.5 MG/DL (8.5-10.1); Estimated Glom Filtration Rate 103 ML/MIN; Glucose 127 MG/DL (74-106); Osmolality,Calculated 279.5 MOS/KG (273-304); Total Protein 7.6 G/DL (6.4-8.3); Troponin I < 0.015 NG/ML (0.00-0.045)
[2019-09-30] MEDS ORDERED: ACETAMINOPHEN 325 MG TABLET PO PRN (14:19)
[2019-09-30] MEDS ORDERED: GLUCAGON 1 MG VIAL IM PRN (14:19)
[2019-09-30] MEDS ORDERED: DEXTROSE 10% 250 ML BAG IV PRN (14:19)
[2019-09-30] MEDS ORDERED: ONDANSETRON 4 MG/2 ML VIAL IV PRN (14:19)
[2019-09-30] MEDS ORDERED: BISACODYL 5 MG TABLET PO PRN (14:19)
[2019-09-30] MEDS ORDERED: DEXTRAN HYPROMELLOSE BOTH EYES PRN (15:59)
[2019-09-30] MEDS: INSULIN LISPRO 100 UNIT/ML SUBCUT SCH ×2 (19:03→22:38)
[2019-09-30] MEDS: MEROPENEM 500 MG in SODIUM CHLORIDE 0.9% 100 ML IV SCH (20:51)
[2019-09-30] MEDS ORDERED: SULFAMETHOX/TRIMETHOPRIM 800-160 MG TABLET PO SCH (21:00)
[2019-09-30] MEDS: INSULIN GLARGINE 100 UNIT/ML SUBCUT SCH (22:00)
[2019-09-30] MEDS: diphenhydrAMINE CAP 25 MG CAPSULE PO PRN (22:02)
[2019-10-01] MEDS: MEROPENEM 500 MG in SODIUM CHLORIDE 0.9% 100 ML IV SCH ×4 (01:56→21:20)
[2019-10-01] MEDS: INSULIN LISPRO 100 UNIT/ML SUBCUT SCH ×4 (08:30→21:22)
[2019-10-01] MEDS: METOPROLOL SUCCINATE XL 25 MG TABLET PO SCH (09:07)
[2019-10-01] MEDS: ASPIRIN EC 81 MG TABLET PO SCH (09:07)
[2019-10-01] MEDS: SODIUM HYPOCHLORITE 0.25% IRRIG 473 ML BOTTLE TOP SCH ×2 (09:07→09:12)
[2019-10-01] MEDS: PANTOPRAZOLE 40 MG TABLET PO SCH (09:07)
[2019-10-01] MEDS: diphenhydrAMINE CAP 25 MG CAPSULE PO PRN (21:20)
[2019-10-01] MEDS: INSULIN GLARGINE 100 UNIT/ML SUBCUT SCH (21:27)
[2019-10-02] MEDS: MEROPENEM 500 MG in SODIUM CHLORIDE 0.9% 100 ML IV SCH ×4 (01:50→21:00)
[2019-10-02] MEDS: INSULIN LISPRO 100 UNIT/ML SUBCUT SCH ×4 (08:10→21:02)
[2019-10-02] MEDS: ASPIRIN EC 81 MG TABLET PO SCH (08:11)
[2019-10-02] MEDS: METOPROLOL SUCCINATE XL 25 MG TABLET PO SCH (08:11)
[2019-10-02] MEDS: PANTOPRAZOLE 40 MG TABLET PO SCH (08:11)
[2019-10-02] MEDS: diphenhydrAMINE CAP 25 MG CAPSULE PO PRN (21:00)
[2019-10-02] MEDS: INSULIN GLARGINE 100 UNIT/ML SUBCUT SCH (21:00)
[2019-10-03] MEDS: MEROPENEM 500 MG in SODIUM CHLORIDE 0.9% 100 ML IV SCH ×2 (02:05→09:53)
[2019-10-03] MEDS: ASPIRIN EC 81 MG TABLET PO SCH (09:52)
[2019-10-03] MEDS: PANTOPRAZOLE 40 MG TABLET PO SCH (09:53)
[2019-10-03] MEDS: METOPROLOL SUCCINATE XL 25 MG TABLET PO SCH (09:53)
[2019-10-03] MEDS: INSULIN LISPRO 100 UNIT/ML SUBCUT SCH ×2 (09:53→12:38)
[2019-10-03 12:27] VITALS: BP 117/66
== END 2019-10-03 13:17 | disposition hospice, home (50) | DRG 501 ==
LOC: EDUNIT# → EDBD → N.ED 12:07 → N.EDINP 14:19 → N.5E 15:13
PROVIDERS: ADMIT Internal Medicine; ATTEND Internal Medicine

== ENCOUNTER 2019-12-12 15:18 | Inpatient (IN) ==
[2019-12-12 16:40] LABS: Basophils # 0.1 10*3/uL (0.0-0.2); Basophils % 0.6 % (0.0-0.8); Eosinophils # 0.2 10*3/uL (0.0-0.87); Eosinophils % 1.4 % (0.00-10.9); Hematocrit 27.7 VOL% (42.0-52.0); Hemoglobin 9.1 GM/DL (14.0-18.0); Immature Granulocytes % 0.5 %; Immature Granulocytes Absolute 0.06 #; Lymphocytes # 1.6 10*3/uL (1.4-4.0); Lymphocytes % 12.9 % (21.2-54.2); Mean Corpuscular HGB Conc 32.9 GM/DL (32-36); Mean Corpuscular Volume 90.2 FL (87-102); Mean Platelet Volume 8.7 FL (9.6-12.0); Monocytes % 5.6 % (1.7-12.7); Platelet Count 315 T/CUMM (130-400); Red Blood Count 3.07 MC/CUMM (3.8-5.5); White Blood Count 12.4 T/CUMM (4-12)
[2019-12-12 16:58] LABS: Alanine Aminotransferase < 9 U/L (16-61); Albumin 2.8 G/DL (3.4-5.0); Alkaline Phosphatase 92 U/L (45-117); Aspartate Amino Transferase 6 U/L (0-37); Blood Urea Nitrogen 23 MG/DL (7-18); Calcium 8.2 MG/DL (8.5-10.1); Estimated Glom Filtration Rate 85 ML/MIN; Glucose 150 MG/DL (74-106); Osmolality,Calculated 281.7 MOS/KG (273-304); Total Protein 7.4 G/DL (6.4-8.3)
[2019-12-12] MEDS ORDERED: ONDANSETRON 4 MG/2 ML VIAL IV PRN (20:16)
[2019-12-12] MEDS ORDERED: ACETAMINOPHEN 325 MG TABLET PO PRN (20:16)
[2019-12-12] MEDS ORDERED: GLUCAGON 1 MG VIAL IM PRN (20:16)
[2019-12-12] MEDS ORDERED: DEXTROSE 10% 250 ML BAG IV PRN (20:16)
[2019-12-12] MEDS: PIPERACILLIN/TAZOBACTAM 3,375 MG in SODIUM CHLORIDE 0.9% 100 ML IV SCH (21:27)
[2019-12-12] MEDS: LACTATED RINGERS 1,000 ML IV SCH (21:27)
[2019-12-12] MEDS: INSULIN REGULAR 100 UNIT/ML SUBCUT SCH (21:28)
[2019-12-13] MEDS: LACTATED RINGERS 1,000 ML IV SCH ×3 (04:20→21:02)
[2019-12-13] MEDS: PIPERACILLIN/TAZOBACTAM 3,375 MG in SODIUM CHLORIDE 0.9% 100 ML IV SCH ×3 (04:20→21:00)
[2019-12-13] MEDS: INSULIN REGULAR 100 UNIT/ML SUBCUT SCH ×4 (07:38→21:01)
[2019-12-13] MEDS ORDERED: LIDOCAINE 1% 20 ML VIAL ONE (08:31)
[2019-12-13] MEDS ORDERED: propofoL 200 MG/20 ML VIAL IV ONE (09:29)
[2019-12-13] MEDS ORDERED: LIDOCAINE 2% 5 ML VIAL ONE (09:29)
[2019-12-13] MEDS ORDERED: MIDAZOLAM 2 MG/2 ML VIAL ONE (09:30)
[2019-12-13] MEDS ORDERED: fentaNYL 100 MCG/2 ML VIAL ONE (09:30)
[2019-12-13] MEDS ORDERED: SODIUM CHLORIDE 0.9% 100 ML IV ONE (09:30)
[2019-12-13] MEDS: PANTOPRAZOLE 40 MG TABLET PO SCH (10:15)
[2019-12-13] MEDS ORDERED: DEXTRAN HYPROMELLOSE BOTH EYES PRN (11:38)
[2019-12-13] MEDS: GABAPENTIN 100 MG CAPSULE PO SCH (12:02)
[2019-12-13] MEDS: ENOXAPARIN 40 MG/0.4 ML SYRINGE SUBCUT SCH (12:02)
[2019-12-13] MEDS: INSULIN LISPRO 100 UNIT/ML SUBCUT SCH ×2 (16:16→21:01)
[2019-12-13] MEDS: SIMVASTATIN 10 MG TABLET PO SCH (21:00)
[2019-12-13] MEDS: GLIMEPIRIDE 4 MG TABLET PO SCH (21:00)
[2019-12-13] MEDS: INSULIN GLARGINE 100 UNIT/ML SUBCUT SCH (21:01)
[2019-12-13] MEDS: diphenhydrAMINE CAP 25 MG CAPSULE PO PRN (22:40)
[2019-12-14] MEDS: GABAPENTIN 100 MG CAPSULE PO SCH ×3 (00:52→23:26)
[2019-12-14] MEDS: PIPERACILLIN/TAZOBACTAM 3,375 MG in SODIUM CHLORIDE 0.9% 100 ML IV SCH ×3 (03:40→21:36)
[2019-12-14] MEDS: LACTATED RINGERS 1,000 ML IV SCH ×3 (07:45→21:36)
[2019-12-14] MEDS: INSULIN REGULAR 100 UNIT/ML SUBCUT SCH ×4 (07:52→21:35)
[2019-12-14] MEDS: LINEZOLID INJ 600 MG in PREMIX 1 EACH IV SCH ×2 (08:38→19:43)
[2019-12-14] MEDS: PANTOPRAZOLE 40 MG TABLET PO SCH (08:40)
[2019-12-14] MEDS: GLIMEPIRIDE 4 MG TABLET PO SCH ×2 (08:41→21:34)
[2019-12-14] MEDS: METOPROLOL SUCCINATE XL 25 MG TABLET PO SCH (08:41)
[2019-12-14] MEDS: INSULIN LISPRO 100 UNIT/ML SUBCUT SCH ×3 (08:41→21:35)
[2019-12-14] MEDS: ASPIRIN EC 81 MG TABLET PO SCH (08:41)
[2019-12-14] MEDS: INSULIN GLARGINE 100 UNIT/ML SUBCUT SCH ×2 (08:41→21:35)
[2019-12-14] MEDS: lisinopriL 5 MG TABLET PO SCH (08:41)
[2019-12-14] MEDS: ENOXAPARIN 40 MG/0.4 ML SYRINGE SUBCUT SCH (12:02)
[2019-12-14] MEDS: SIMVASTATIN 10 MG TABLET PO SCH (21:34)
[2019-12-14] MEDS: diphenhydrAMINE CAP 25 MG CAPSULE PO PRN (21:34)
[2019-12-15] MEDS: PIPERACILLIN/TAZOBACTAM 3,375 MG in SODIUM CHLORIDE 0.9% 100 ML IV SCH ×3 (04:52→21:12)
[2019-12-15] MEDS: LACTATED RINGERS 1,000 ML IV SCH (04:52)
[2019-12-15] MEDS: INSULIN REGULAR 100 UNIT/ML SUBCUT SCH ×4 (08:08→21:13)
[2019-12-15] MEDS: INSULIN LISPRO 100 UNIT/ML SUBCUT SCH ×3 (08:23→21:13)
[2019-12-15] MEDS: INSULIN GLARGINE 100 UNIT/ML SUBCUT SCH ×2 (08:23→21:14)
[2019-12-15] MEDS: lisinopriL 5 MG TABLET PO SCH (09:59)
[2019-12-15] MEDS: ASPIRIN EC 81 MG TABLET PO SCH (09:59)
[2019-12-15] MEDS: METOPROLOL SUCCINATE XL 25 MG TABLET PO SCH (09:59)
[2019-12-15] MEDS: LINEZOLID INJ 600 MG in PREMIX 1 EACH IV SCH ×2 (10:00→21:11)
[2019-12-15] MEDS: GLIMEPIRIDE 4 MG TABLET PO SCH ×2 (10:00→21:13)
[2019-12-15] MEDS: PANTOPRAZOLE 40 MG TABLET PO SCH (10:00)
[2019-12-15] MEDS: ENOXAPARIN 40 MG/0.4 ML SYRINGE SUBCUT SCH (11:33)
[2019-12-15] MEDS: GABAPENTIN 100 MG CAPSULE PO SCH (11:33)
[2019-12-15] MEDS: SIMVASTATIN 10 MG TABLET PO SCH (21:14)
[2019-12-16] MEDS: GABAPENTIN 100 MG CAPSULE PO SCH ×3 (01:52→23:50)
[2019-12-16] MEDS: PIPERACILLIN/TAZOBACTAM 3,375 MG in SODIUM CHLORIDE 0.9% 100 ML IV SCH ×3 (03:40→20:50)
[2019-12-16] MEDS: LACTATED RINGERS 1,000 ML IV SCH ×6 (06:10→21:46)
[2019-12-16] MEDS: LINEZOLID INJ 600 MG in PREMIX 1 EACH IV SCH ×2 (08:39→20:50)
[2019-12-16] MEDS: METOPROLOL SUCCINATE XL 25 MG TABLET PO SCH (08:47)
[2019-12-16] MEDS: PANTOPRAZOLE 40 MG TABLET PO SCH (08:47)
[2019-12-16] MEDS: ASPIRIN EC 81 MG TABLET PO SCH (08:47)
[2019-12-16] MEDS: lisinopriL 5 MG TABLET PO SCH (08:47)
[2019-12-16] MEDS: INSULIN LISPRO 100 UNIT/ML SUBCUT SCH ×3 (08:55→20:55)
[2019-12-16] MEDS: INSULIN REGULAR 100 UNIT/ML SUBCUT SCH ×4 (08:55→20:55)
[2019-12-16] MEDS: GLIMEPIRIDE 4 MG TABLET PO SCH ×2 (08:59→20:51)
[2019-12-16] MEDS: ENOXAPARIN 40 MG/0.4 ML SYRINGE SUBCUT SCH (12:18)
[2019-12-16] MEDS: INSULIN GLARGINE 100 UNIT/ML SUBCUT SCH ×2 (13:24→20:57)
[2019-12-16] MEDS: diphenhydrAMINE CAP 25 MG CAPSULE PO PRN (20:49)
[2019-12-16] MEDS: SIMVASTATIN 10 MG TABLET PO SCH (20:51)
[2019-12-17] MEDS: PIPERACILLIN/TAZOBACTAM 3,375 MG in SODIUM CHLORIDE 0.9% 100 ML IV SCH ×3 (04:46→21:30)
[2019-12-17] MEDS: INSULIN REGULAR 100 UNIT/ML SUBCUT SCH ×4 (06:57→21:34)
[2019-12-17] MEDS: LACTATED RINGERS 1,000 ML IV SCH ×3 (07:05→21:33)
[2019-12-17] MEDS: LINEZOLID INJ 600 MG in PREMIX 1 EACH IV SCH ×3 (08:25→21:28)
[2019-12-17] MEDS: METOPROLOL SUCCINATE XL 25 MG TABLET PO SCH (08:34)
[2019-12-17] MEDS: PANTOPRAZOLE 40 MG TABLET PO SCH (08:34)
[2019-12-17] MEDS: lisinopriL 5 MG TABLET PO SCH (08:34)
[2019-12-17] MEDS: ASPIRIN EC 81 MG TABLET PO SCH (08:34)
[2019-12-17] MEDS: INSULIN LISPRO 100 UNIT/ML SUBCUT SCH ×3 (08:35→21:33)
[2019-12-17] MEDS: INSULIN GLARGINE 100 UNIT/ML SUBCUT SCH ×2 (08:35→21:34)
[2019-12-17] MEDS: GLIMEPIRIDE 4 MG TABLET PO SCH ×2 (08:36→21:30)
[2019-12-17] MEDS: GABAPENTIN 100 MG CAPSULE PO SCH (12:23)
[2019-12-17] MEDS: ENOXAPARIN 40 MG/0.4 ML SYRINGE SUBCUT SCH (12:24)
[2019-12-17] MEDS: SIMVASTATIN 10 MG TABLET PO SCH (21:30)
[2019-12-17] MEDS: diphenhydrAMINE CAP 25 MG CAPSULE PO PRN (21:30)
[2019-12-18] MEDS: GABAPENTIN 100 MG CAPSULE PO SCH (00:46)
[2019-12-18] MEDS: PIPERACILLIN/TAZOBACTAM 3,375 MG in SODIUM CHLORIDE 0.9% 100 ML IV SCH (05:17)
[2019-12-18 08:15] VITALS: BP 109/73
[2019-12-18] MEDS: INSULIN REGULAR 100 UNIT/ML SUBCUT SCH (10:05)
[2019-12-18] MEDS: INSULIN LISPRO 100 UNIT/ML SUBCUT SCH (10:06)
[2019-12-18] MEDS: LINEZOLID INJ 600 MG in PREMIX 1 EACH IV SCH (10:06)
[2019-12-18] MEDS: lisinopriL 5 MG TABLET PO SCH (10:35)
[2019-12-18] MEDS: INSULIN GLARGINE 100 UNIT/ML SUBCUT SCH (10:35)
[2019-12-18] MEDS: GLIMEPIRIDE 4 MG TABLET PO SCH (10:35)
[2019-12-18] MEDS: ASPIRIN EC 81 MG TABLET PO SCH (10:35)
[2019-12-18] MEDS: METOPROLOL SUCCINATE XL 25 MG TABLET PO SCH (10:36)
[2019-12-18] MEDS: PANTOPRAZOLE 40 MG TABLET PO SCH (11:06)
== END 2019-12-18 10:56 | disposition home or self-care (01) | DRG 305 ==
LOC: EDBD → EDUNIT# → N.EDINP 15:18 → N.ED 15:18 → N.3E 19:29
PROVIDERS: ADMIT Surgery; ATTEND Surgery

== ENCOUNTER 2020-10-31 12:40 | Inpatient (IN) ==
[2020-10-31] MEDS ORDERED: MEROPENEM 1,000 MG in SODIUM CHLORIDE 0.9% 100 ML IV STA (13:15)
[2020-10-31 14:37] LABS: Basophils # 0.1 10*3/uL (0.0-0.2); Basophils % 0.7 % (0.0-0.8); Eosinophils # 0.2 10*3/uL (0.0-0.87); Eosinophils % 2.2 % (0.00-10.9); Hematocrit 31.1 VOL% (42.0-52.0); Hemoglobin 10.4 GM/DL (14.0-18.0); Immature Granulocytes % 0.3 %; Immature Granulocytes Absolute 0.03 #; Lymphocytes # 1.1 10*3/uL (1.4-4.0); Lymphocytes % 12.9 % (21.2-54.2); Mean Corpuscular HGB Conc 33.4 GM/DL (32-36); Mean Corpuscular Volume 85.2 FL (87-102); Mean Platelet Volume 8.6 FL (9.6-12.0); Monocytes % 4.4 % (1.7-12.7); Neutrophils % 79.5 % (38.7-73.9); Platelet Count 356 T/CUMM (130-400); Red Blood Count 3.65 MC/CUMM (3.8-5.5); Red Cell Distribution Width 12.1 % (9.3-17.3); White Blood Count 8.7 T/CUMM (4-12)
[2020-10-31 15:10] LABS: Alanine Aminotransferase 13 U/L (16-61); Albumin 2.6 G/DL (3.4-5.0); Alkaline Phosphatase 123 U/L (45-117); Aspartate Amino Transferase 8 U/L (0-37); Bilirubin,Total < 0.39 MG/DL (0.2-1.0); Blood Urea Nitrogen 19 MG/DL (7-18); Calcium 8.8 MG/DL (8.5-10.1); Estimated Glom Filtration Rate 67 ML/MIN; Glucose 230 MG/DL (74-106); Osmolality,Calculated 281.8 MOS/KG (273-304); Total Protein 7.6 G/DL (6.4-8.3)
[2020-10-31] MEDS ORDERED: PROMETHAZINE 25 MG TABLET PO PRN (15:19)
[2020-10-31] MEDS ORDERED: hydrALAZINE 20 MG/1 ML VIAL IV PRN (15:19)
[2020-10-31] MEDS ORDERED: diphenhydrAMINE CAP 25 MG CAPSULE PO PRN ×2 (15:19→15:28)
[2020-10-31] MEDS ORDERED: BISACODYL 5 MG TABLET PO PRN (15:19)
[2020-10-31] MEDS ORDERED: NICOTINE 21 MG/24 HR PATCH TRANSDERM PRN (15:19)
[2020-10-31] MEDS ORDERED: guaiFENesin/DM ER 600-30 MG TABLET PO PRN (15:19)
[2020-10-31] MEDS ORDERED: DEXTROSE 50% 25 GM/50 ML VIAL IV PRN ×2 (15:19)
[2020-10-31] MEDS ORDERED: MAGNESIUM SULF RIDER 2 GM in PREMIX 1 EACH IV PRN (15:19)
[2020-10-31] MEDS ORDERED: MORPHINE 4 MG/1 ML VIAL IV PRN (15:19)
[2020-10-31] MEDS ORDERED: ONDANSETRON 4 MG/2 ML VIAL IV PRN (15:19)
[2020-10-31] MEDS ORDERED: MAGNESIUM SULF RIDER 4 GM in PREMIX 1 EACH IV PRN (15:19)
[2020-10-31] MEDS ORDERED: GLUCAGON 1 MG VIAL IM PRN ×2 (15:19)
[2020-10-31] MEDS ORDERED: SIMETHICONE CHEW 125 MG TABLET PO PRN (15:19)
[2020-10-31] MEDS ORDERED: LACTULOSE 20 GM/30 ML UDCUP PO PRN (15:19)
[2020-10-31] MEDS ORDERED: POTASSIUM CHLORIDE RIDER 10 MEQ in PREMIX 1 EACH IV PRN (15:19)
[2020-10-31] MEDS ORDERED: traZODone 50 MG TABLET PO PRN (15:19)
[2020-10-31] MEDS ORDERED: ACETAMINOPHEN 325 MG TABLET PO PRN (15:19)
[2020-10-31] MEDS ORDERED: ZALEPLON 5 MG CAPSULE PO PRN (15:19)
[2020-10-31] MEDS ORDERED: DOCUSATE SODIUM 100 MG CAPSULE PO PRN (15:19)
[2020-10-31] MEDS: INSULIN REGULAR 100 UNIT/ML SUBCUT SCH ×2 (17:57→21:35)
[2020-10-31] MEDS ORDERED: VANCOMYCIN INJ 1,750 MG in SODIUM CHLORIDE 0.9% 500 ML IV ONE (18:00)
[2020-10-31] MEDS ORDERED: metFORMIN 500 MG TABLET PO SCH (21:00)
[2020-10-31] MEDS: ENOXAPARIN 40 MG/0.4 ML SYRINGE SUBCUT SCH (21:35)
[2020-10-31] MEDS: SODIUM CHLORIDE 0.9% 1,000 ML IV SCH (21:37)
[2020-11-01] MEDS: VANCOMYCIN INJ 1,250 MG in SODIUM CHLORIDE 0.9% 250 ML IV SCH ×2 (05:15→21:30)
[2020-11-01 05:51] LABS: Basophils # 0.1 10*3/uL (0.0-0.2); Basophils % 0.8 % (0.0-0.8); Eosinophils # 0.3 10*3/uL (0.0-0.87); Eosinophils % 3.5 % (0.00-10.9); Hematocrit 31.8 VOL% (42.0-52.0); Hemoglobin 10.4 GM/DL (14.0-18.0); Immature Granulocytes % 0.5 %; Immature Granulocytes Absolute 0.04 #; Lymphocytes # 1.5 10*3/uL (1.4-4.0); Lymphocytes % 19.9 % (21.2-54.2); Mean Corpuscular HGB Conc 32.7 GM/DL (32-36); Mean Corpuscular Volume 86.9 FL (87-102); Mean Platelet Volume 8.6 FL (9.6-12.0); Monocytes % 5.4 % (1.7-12.7); Neutrophils % 69.9 % (38.7-73.9); Platelet Count 364 T/CUMM (130-400); Red Blood Count 3.66 MC/CUMM (3.8-5.5); Red Cell Distribution Width 12.2 % (9.3-17.3); White Blood Count 7.6 T/CUMM (4-12)
[2020-11-01 06:26] LABS: Albumin 2.3 G/DL (3.4-5.0); Bilirubin,Total 0.5 MG/DL (0.2-1.0); Calcium 8.5 MG/DL (8.5-10.1); Osmolality,Calculated 280.5 MOS/KG (273-304); Risk Ratio 5.96; Thyroid Stimulating Hormone 0.248 uIU/ml (0.358-3.74); Total Protein 6.8 G/DL (6.4-8.3); VLDL CHOLESTEROL 30.4 MG/DL
[2020-11-01 07:11] LABS: Bacteria,Urine Occasional /HPF (Few); Bilirubin,Urine Negative (Negative); Blood, Urine Small mg/dL (Negative); Glucose,Urine (UA) 150 mg/dL (Negative); Ketones,Urine Negative (Negative); Mucus,Urine Occasional /LPF (Occasional); Nitrite,Urine Negative (Negative); Protein,Urine 30 MG/DL; RBC,Urine 6 /HPF (0-4); Squamous Epithelial Cell,Urine Occasional /HPF (0-10); Urine Appearance CLEAR (Clear); Urine Color Yellow (Yellow); Urine Specific Gravity 1.012 (1.001-1.035); Urine Urobilinogen < 2.0 EU/DL (0.2-1.0); WBC,Urine <1 /HPF (0-6)
[2020-11-01] MEDS ORDERED: PANTOPRAZOLE 40 MG TABLET PO SCH (09:00)
[2020-11-01 09:19] LABS: Free T4 (Free Thyroxine) 1.08 NG/DL (0.76-1.46)
[2020-11-01] MEDS: PIPERACILLIN/TAZOBACTAM 3,375 MG in SODIUM CHLORIDE 0.9% 100 ML IV SCH ×2 (09:53→16:38)
[2020-11-01] MEDS: METOPROLOL SUCCINATE XL 25 MG TABLET PO SCH (09:53)
[2020-11-01] MEDS: INSULIN REGULAR 100 UNIT/ML SUBCUT SCH ×4 (09:53→21:35)
[2020-11-01] MEDS ORDERED: LIDOCAINE 1% 20 ML VIAL ONE (12:24)
[2020-11-01] MEDS ORDERED: BUPIVACAINE MPF 0.25% 30 ML VIAL ONE (12:24)
[2020-11-01] MEDS ORDERED: MIDAZOLAM 2 MG/2 ML VIAL ONE (12:44)
[2020-11-01] MEDS ORDERED: DEXMEDETOMIDINE 200 MCG/2 ML VIAL ONE (12:48)
[2020-11-01] MEDS ORDERED: DEXTROSE 50% 25 GM/50 ML VIAL IV PRN (14:16)
[2020-11-01] MEDS: ENOXAPARIN 40 MG/0.4 ML SYRINGE SUBCUT SCH (21:35)
[2020-11-01] MEDS: SODIUM CHLORIDE 0.9% 1,000 ML IV SCH (21:36)
[2020-11-02] MEDS: PIPERACILLIN/TAZOBACTAM 3,375 MG in SODIUM CHLORIDE 0.9% 100 ML IV SCH ×2 (01:52→10:56)
[2020-11-02 04:21] LABS: Basophils % 0.4 % (0.0-0.8); Eosinophils # 0.3 10*3/uL (0.0-0.87); Eosinophils % 3.4 % (0.00-10.9); Hematocrit 28.9 VOL% (42.0-52.0); Hemoglobin 9.5 GM/DL (14.0-18.0); Immature Granulocytes % 0.5 %; Immature Granulocytes Absolute 0.04 #; Lymphocytes # 1.1 10*3/uL (1.4-4.0); Lymphocytes % 14.2 % (21.2-54.2); Mean Corpuscular HGB Conc 32.9 GM/DL (32-36); Mean Platelet Volume 8.4 FL (9.6-12.0); Neutrophils % 75.5 % (38.7-73.9); Platelet Count 310 T/CUMM (130-400); Red Blood Count 3.36 MC/CUMM (3.8-5.5); Red Cell Distribution Width 12.2 % (9.3-17.3); White Blood Count 7.4 T/CUMM (4-12)
[2020-11-02 04:47] LABS: Albumin 2.2 G/DL (3.4-5.0); Bilirubin,Total 1.5 MG/DL (0.2-1.0); Calcium 8.1 MG/DL (8.5-10.1); Osmolality,Calculated 280.5 MOS/KG (273-304); Total Protein 6.4 G/DL (6.4-8.3)
[2020-11-02] MEDS: VANCOMYCIN INJ 1,250 MG in SODIUM CHLORIDE 0.9% 250 ML IV SCH (10:54)
[2020-11-02] MEDS: INSULIN REGULAR 100 UNIT/ML SUBCUT SCH (10:56)
[2020-11-02] MEDS: METOPROLOL SUCCINATE XL 25 MG TABLET PO SCH (10:56)
[2020-11-02 12:43] VITALS: BP 118/69
[2020-11-02] MEDS ORDERED: metFORMIN 500 MG TABLET PO SCH (14:38)
== END 2020-11-02 15:55 | disposition home health service (06) | DRG 314 ==
LOC: N.ED 12:40 → N.EDINP 15:19 → N.5E 16:24
PROVIDERS: ADMIT Internal Medicine; ATTEND Internal Medicine